=== PATIENT | male | born 1970 | race Caucasian/White ===

== ENCOUNTER 2022-04-21 06:01 | Emergency (ER) | payer SELFPAY | END 2022-04-21 08:45 | disposition home or self-care (01) | LOC: CSHERS 06:01 | DX: H59.89 Other postprocedural complications and disorders of eye and adnexa, not elsewhere classified (principal); H11.31 Conjunctival hemorrhage, right eye; E11.9 Type 2 diabetes mellitus without complications; Z79.84 Long term (current) use of oral hypoglycemic drugs | CPT/HCPCS: 99283 ==